=== PATIENT | male | born 1965 | race Caucasian/White ===

== ENCOUNTER 2018-11-25 14:18 | Emergency (ER) | payer OTHER, SELFPAY ==
[2018-11-25 14:24] VITALS: BP 146/75; PULSE 62; RESP 14; TEMP 36.8; O2SAT 99; BMI 34.8
[2018-11-25] MEDS: TET,DIPH,PERTUSS(ACELL),VAC/PF 0.5 ML SYRINGE IM (14:57)
--- NOTE | 2018-11-25 15:24 | ED_ITS ---
HPI - Wound/Laceration <RON Ken - Last Filed: 11/25/18 15:34> General Chief Complaint: Wound/Laceration Stated Complaint: cat bite on hands Time Seen by Provider: 11/25/18 14:22 Source: patient Mode of arrival: Ambulatory Limitations: no limitations History of Present Illness HPI narrative: The patient is a 53-year-old male current smoker who is unsure when his last tetanus was who presents with a chief complaint of cat bite edward and scratches that occurred 3 days ago. He states he was moving his newly adopted cat to prevent him for burning outside the house, when the CT bit and scratched him. He states he has 3 puncture edward on each hand. He is concerned because 1 of them is increasingly red. He does not know when his last tetanus was. Denies any fevers nausea vomiting diarrhea or signs of systemic illness. He states that his cat has been vaccinated against everything including rabies. Patient states that he has full range of motion noted of bilateral hands. Related Data Previous Rx's Medication Instructions Recorded amoxicillin-pot clavulanate 1 tab PO BID #20 tab 11/25/18 [Augmentin] Allergies Allergy/AdvReac Type Severity Reaction Status Date / Time No Known Drug Allergies Allergy Verified 11/25/18 14:24 Review of Systems <RON Ken - Last Filed: 11/25/18 15:34> Review of Systems Narrative: GENERAL: Denies chills, fatigue, malaise, fever, sweats. HEENT: Denies sinus pain, ear pain, sore throat, difficulty swallowing, dizziness. RESPIRATORY: Denies dyspnea, cough, wheezing, hemoptysis, sputum. CARDIOVASCULAR: Denies chest pain, palpitations, orthopnea, edema, GASTROINTESTINAL: Denies nausea, vomiting, abdominal pain, diarrhea, constipation, melena. : Denies dysuria, frequency, incontinence, hematuria, urinary retention. MUSCULOSKELETAL: See HPI SKIN: See HPI NEUROLOGIC: Denies weakness, headache, numbness, change in speech, confusion, seizures, incoordination. PSYCHIATRIC: No concerning psychosocial issues. 12 point review of systems is negative except for those stated above PFSH <RON Ken - Last Filed: 11/25/18 15:34> Social History Smoking Status: Current every day smoker Social History Smoking Status: Current every day smoker Exam <RON Ken - Last Filed: 11/25/18 15:34> Narrative Exam Narrative: GENERAL: This is a well-nourished, well-developed patient, no acute distress HEAD: Atraumatic. Normocephalic. No temporal or scalp tenderness. EYES: Pupils equal round and reactive. Extraocular motions intact. No scleral icterus. No injection or drainage. ENT: Nose without bleeding, purulent drainage or septal hematoma. Throat without erythema, tonsillar hypertrophy or exudate. Uvula midline. Airway patent. NECK: Trachea midline. No JVD or lymphadenopathy. Supple, nontender, no meningeal signs. CARDIOVASCULAR: Regular rate and rhythm without murmurs, gallops, or rubs. RESPIRATORY: Clear to auscultation. Breath sounds equal bilaterally. No wheezes, rales, or rhonchi. No cough. No increased respiratory effort. No accessory muscle use. GASTROINTESTINAL: Abdomen soft, non-tender, nondistended. No hepato-splenomega ly, or palpable masses. No guarding. EXTREMITIES: Full range of motion noted bilateral hands. Positive radial pulses. Cap refill less than 2 seconds all fingers. BACK: Nontender without deformity or crepitance. No flank tenderness. NEURO: AOx3. SKIN: 3 puncture edward noted on each hand. one puncture monique on dorsum of right hand has slight surrounding erythema. No drainage noted. Initial Vital Signs Initial Vital Signs: Vital Signs Temperature 98.3 F 11/25/18 14:24 Pulse Rate 62 11/25/18 14:24 Respiratory Rate 14 11/25/18 14:24 Blood Pressure 146/75 H 11/25/18 14:24 Pulse Oximetry 99 11/25/18 14:24 <Yo Morris DO - Last Filed: 11/25/18 15:36> Initial Vital Signs Initial Vital Signs: Vital Signs Temperature 98.3 F 11/25/18 14:24 Pulse Rate 62 11/25/18 14:24 Respiratory Rate 14 11/25/18 14:24 Blood Pressure 146/75 H 11/25/18 14:24 Pulse Oximetry 99 11/25/18 14:24 Course <YOLANDA Ken-BC - Last Filed: 11/25/18 15:34> Orders Ordered: Discontinued Medications Diphtheria/Tetanus/Acell Pertussis (Adacel) 0.5 ml IM .ONCE ONE Stop: 11/25/18 14:29 Last Admin: 11/25/18 14:57 Dose: 0.5 ml Documented by: TAYLOR Vital Signs Vital signs: Vital Signs - 8 hr 11/25/18 14:24 Temperature 98.3 F Pulse Rate 62 Respiratory Rate 14 Blood Pressure 146/75 H Pulse Oximetry 99 <Yo Morris DO - Last Filed: 11/25/18 15:36> Orders Ordered: Discontinued Medications Diphtheria/Tetanus/Acell Pertussis (Adacel) 0.5 ml IM .ONCE ONE Stop: 11/25/18 14:29 Last Admin: 11/25/18 14:57 Dose: 0.5 ml Documented by: TAYLOR Vital Signs Vital signs: Vital Signs - 8 hr 11/25/18 14:24 Temperature 98.3 F Pulse Rate 62 Respiratory Rate 14 Blood Pressure 146/75 H Pulse Oximetry 99 MDM - Wound/Laceration <YOLANDA Ken-BC - Last Filed: 11/25/18 15:34> MDM Narrative Medical decision making narrative: The patient is a 53-year-old male who presents with a chief complaint of a cat bite. He has no signs of systemic infection, but does have slight surrounding erythema to 1 of the puncture edward. Thus I will start him on Augmentin. His tetanus was updated. The cat was vaccinated and has a house cat, alleviating rabies concerns. I did discuss at length monitoring for worsening signs of infection including fever vomiting diarrhea decreased range of motion encouraged follow-up if this was to occur. Discussed at length coming back to the ER for any acute concerns. Patient has no questions or concerns and states understanding of plan of care as well as return precautions Discharge Plan Departure Patient Disposition: Home Clinical Impression: Cat bite Qualifiers: Encounter type: initial encounter Qualified Code(s): W55.01XA - Bitten by cat, initial encounter Instructions: DI for Animal Bites, DI for Cat Bite Activity Restrictions/Additional Instructions: I have started an antibiotic for you. Please take the whole course. Please monitor for signs of worsening infection including fever vomiting, decreased range of motion. Please follow-up if any of these occur. Today we also updated your tetanus. Please follow up with primary care provider. Prescriptions: New amoxicillin-pot clavulanate [Augmentin] 875-125 mg tablet 1 tab PO BID Qty: 20 RF: 0 <Yo Morris DO - Last Filed: 11/25/18 15:36> Sign Out Provider Sign Out Attestation: I was available for consultation during this patient's emergency department encounter
[2018-11-25 15:44] VITALS: BP 125/73; PULSE 61; O2SAT 98
== END 2018-11-25 15:45 | disposition home or self-care (01) ==
PROVIDERS: Emergency Provider Nurse Practitioner Family
DX: Z23 Encounter for immunization (principal); W55.01XA Bitten by cat, initial encounter
CPT/HCPCS: 90471; 99283; 90715